=== PATIENT | female | born 2000 | race Caucasian/White ===

== ENCOUNTER → 2020-10-04 | Outpatient (CLI) | payer BC | LOC: COL.RAD 08:09 | DX: D39.10 Neoplasm of uncertain behavior of unspecified ovary (principal) ==

== ENCOUNTER 2022-02-17 05:24 | Outpatient (CLI) | payer BC ==
[~2022-02-17] VITALS: Ht 170.2 cm; Wt 77.3 kg
--- NOTE | 2022-02-17 05:25 | NUR ---
PT TO UNIT AMBULATORY WITH CONCERNS OF ABDOMINAL PAIN AND DIZZINESS. PT ORIENTED TO ROOM, EFM X2 APPLIED, VS OBTAINED, SVE PERFORMED.
[2022-02-17 06:00] VITALS: BP 121/78; BP 133/76; PULSE 70; PULSE 81; TEMP 98.1; TEMP 98.7
[2022-02-21] MEDS ORDERED: PRENATAL TABLET PO (09:52)
[2022-02-22] MEDS ORDERED: IBU600 MG PO (07:08)
== END 2022-02-17 07:10 | disposition home or self-care (01) ==
LOC: LDRO 05:24
DX: O26.893 Other specified pregnancy related conditions, third trimester (principal); R10.9 Unspecified abdominal pain; R42 Dizziness and giddiness; Z3A.37 37 weeks gestation of pregnancy